=== PATIENT | female | born 1995 | race Caucasian/White ===

== ENCOUNTER 2017-01-23 07:31 | Emergency (ER) | payer BC ==
--- NOTE | 2017-01-23 08:38 | ED ORDER SUMMARY ---
..... Patient: SUZY HUTCHINS OrderSheet [facility] VisitID: [id number] [address] [place] [address] 21y, F Registration Date/Time: 01/23/2017 ORDER SHEET Weight: 62.1 kg (stated) Allergies: No Known Drug Allergy GENERAL ORDERS: MEDICATION ORDERS: Percocet PO 5/325 mg (HIGH ALERT MEDICATION, NOW) (08:35 01/23/2017 [facility]) (Ack 8:39 MWinterer R.N.) (8:46 MWinterer R.N.) Zofran ODT PO 4 mg (NOW) (08:35 01/23/2017 [facility]) (Ack 8:39 MWinterer R.N.) (8:46 MWinterer R.N.) Ceftriaxone IM 1 gm (NOW) (08:35 01/23/2017 [facility]) (Ack 8:39 MWinterer R.N.) (9:38 MWinterer R.N.) Clindamycin PO 300 mg (NOW) (08:35 01/23/2017 [facility]) (Ack 8:39 MWinterer R.N.) (8:47 MWinterer R.N.) IV FLUIDS: ORDER SHEET NOTES: [Electronically signed by Chyna Mcdaniel R.N. (18:51 01/23/2017)] [Electronically signed by Nazario Easley DO (11:38 01/24/2017)] [Electronically locked/signed by Chyna Mcdaniel R.N. (18:51 01/23/2017)]
--- NOTE | 2017-01-23 08:38 | ED NURSING NOTES ---
Clinical Report - Nurses [facility] [address] [place] [address] 01/23/2017 7:36 Patient: SUZY HUTCHINS TRIAGE Acuity: LEVEL 3. Chief Complaint: SORE THROAT. Alert. No acute distress. SEPSIS SCREEN: Sepsis Screen. Negative (no infection suspected/documented). --08:25 Chyna Mcdaniel R.N. 08:20 01/23/17. BP: 111/78. HR: 78. RR: 20. O2 saturation: 99%. Temp: 99.1 F (oral). Pain level now: 03/17. --08:25 Chyna Mcdaniel R.N. Weight: 62.1 kg stated. Height/Length: 65 inches Per Patient. BMI: 22.8. --08:24 Chyna Mcdaniel R.N. Medications Control Pills. --08:22 Chyna Mcdaniel R.N. Amoxicillin-Pot Clavulanate Oral 875 mg. --08:22 Chyna Mcdaniel R.N. Medication/allergy information source: the patient. --08:25 Chyna Mcdaniel R.N. Allergies No Known Drug Allergy. --08:24 Chyna Mcdaniel R.N. History Arrived by private vehicle. Historian: patient. Accompanied by (boyfriend). Primary physician (none). ( Pt reports she was seen at [facility] yesterday and they diagnosed her with a swollen salivary gland. Pt given rx for amoxicillin. Pt reports this am pain is worse.). Reports enlarged lymph nodes. PAST MEDICAL HX: Immunizations: up-to-date. Last normal menstrual period now. SOCIAL HX: Current every day heavy tobacco smoker (cigarette)- less than 1 pack per day. Occasional alcohol use. No drug use. FALL RISK ASSESSMENT: Fall risk assessment completed. No fall risk identified. NUTRITIONAL RISK ASSESSMENT: The nutritional risk assessment revealed no deficiencies. FUNCTIONAL ASSESSMENT: Functional assessment: no impairments noted. LEARNING NEEDS ASSESSMENT: The learning needs assessment revealed no barriers. SKIN INTEGRITY ASSESSMENT: Skin integrity risk assessment completed. No skin integrity risk identified. --08:25 Chyna Mcdaniel R.N. Assessment GENERAL / NEURO / PSYCH: Alert. Oriented X 4. Appears in no acute distress. [place] Coma Scale: 15- eyes open spontaneously (4); best verbal response- oriented x 4 (5); best motor response- obeys commands (6). Patient appears calm and cooperative. RESPIRATORY: Respirations not labored. CVS: Capillary refill less than 2 seconds. GI / : Abdomen soft and nontender. SKIN: Mucous membranes are pink. Skin is warm and dry. --08:25 Chyna Mcdaniel R.N. Interventions ID band on patient. To treatment room. --08:25 Chyna Mcdaniel R.N. PHYSICAL ASSESSMENT Ambulatory to room. GENERAL / NEURO / PSYCH: Alert. Oriented X 4. Appears in no acute distress. HEENT: Voice within normal limits. Mucous membranes are pink. RESPIRATORY: Respirations not labored. CVS: Capillary refill less than 2 seconds. SKIN: Skin is warm. Normal skin turgor. --08:26 Chyna Mcdaniel R.N. NURSING PROGRESS NOTES 08:26 01/23/17. Patient gowned. Two patient identifiers checked. Checked patient name and birthdate. Call light placed in reach. Bed placed in lowest position. Brakes of bed on. Patient ready for evaluation- chart flagged and ED physician notified. --08:26 Chyna Mcdaniel R.N. 08:46 01/23/2017 Percocet (Oxycodone-Acetaminophen) PO 5/325 mg Tablets 1 tab given. Allergies verified, confirmed 5 rights and sedative warning given to the patient. --08:46 Chyna Mcdaniel R.N. 08:46 01/23/2017 Zofran ODT (Ondansetron) PO 4 mg given. Allergies verified and confirmed 5 rights. --08:46 Chyna Mcdaniel R.N. 08:47 01/23/2017 Clindamycin PO 300 mg given. Allergies verified and confirmed 5 rights. --08:47 Chyna Mcdaniel R.N. 09:35 01/23/17. BP: 117/64. HR: 89. RR: 16. O2 saturation: 98% on room air. Pain level now: 2/10. --09:36 Chyna Mcdaniel R.N. 09:38 01/23/2017 Ceftriaxone IM 1 gm given. Given in the right gluteus alexus. Allergies verified and confirmed 5 rights. --09:38 Chyna Mcdaniel R.N. DISPOSITION / DISCHARGE Departure time: 10:00 Jan 23 2017. Condition at departure: improved and stable. No learning barriers present. Reviewed medication(s) side effects, precautions and dosing information. Prescription(s) given to the patient. Patient verbalized understanding. Written instructions provided in Malay. The patient was discharged by the physician. She was discharged home and accompanied by underwear welter. She left the Emergency Department ambulatory and via private vehicle. Flour Broker driving. --18:50 Chyna Mcdaniel R.N. 18:49 01/23/17. BP: 108/59. HR: 68. RR: 18. O2 saturation: 98% on room air. Temp: 98.9 F (oral). Pain level now: 09/17. --18:50 Chyna Mcdaniel R.N. Locked/Released at 01/23/2017 18:51 by Chyna Mcdaniel R.N.
--- NOTE | 2017-01-23 08:38 | ED ORDER SUMMARY ---
..... Patient: SUZY HUTCHINS OrderSheet [facility] VisitID: [id number] [address] [place] [address] 21y, F Registration Date/Time: 01/23/2017 ORDER SHEET Weight: 62.1 kg (stated) Allergies: No Known Drug Allergy GENERAL ORDERS: MEDICATION ORDERS: Percocet PO 5/325 mg (HIGH ALERT MEDICATION, NOW) (08:35 01/23/2017 [facility]) (Ack 8:39 MWinterer R.N.) (8:46 MWinterer R.N.) Zofran ODT PO 4 mg (NOW) (08:35 01/23/2017 [facility]) (Ack 8:39 MWinterer R.N.) (8:46 MWinterer R.N.) Ceftriaxone IM 1 gm (NOW) (08:35 01/23/2017 [facility]) (Ack 8:39 MWinterer R.N.) (9:38 MWinterer R.N.) Clindamycin PO 300 mg (NOW) (08:35 01/23/2017 [facility]) (Ack 8:39 MWinterer R.N.) (8:47 MWinterer R.N.) IV FLUIDS: ORDER SHEET NOTES: [Electronically signed by Chyna Mcdaniel R.N. (18:51 01/23/2017)] [Electronically signed by Nazario Easley DO (11:38 01/24/2017)] [Electronically locked/signed by Chyna Mcdaniel R.N. (18:51 01/23/2017)]
--- NOTE | 2017-01-23 08:38 | ED CLINICAL REPORT ---
Clinical Report - Physicians/Mid Levels [facility] [address] [place] [address] 01/23/2017 7:36 Patient: SUZY HUTCHINS Time Seen: 08:27. Arrived- By private vehicle. Historian- patient. HISTORY OF PRESENT ILLNESS Chief Complaint: SWELLING OF JAW / FACE. This started about 2 days ago and is still present. It was gradual in onset and has been waxing/waning. Pain described as moderate. No sore throat. She has had moderate swelling of the left face. (Pt reports she was seen at [facility] yesterday and they diagnosed her with a swollen salivary gland. Pt given rx for amoxicillin. Pt reports this am pain is worse.). Reports enlarged lymph nodes.). Similar symptoms previously: Recent medical care: The patient was seen recently at another facility in a clinic. REVIEW OF SYSTEMS Last normal menstrual period now. No fever, difficulty breathing, nausea, difficulty with urination or headache. No skin rash or vomiting. Denies current . PAST HISTORY See nurses notes. SOCIAL HISTORY Smoker- current status unknown. Occasional alcohol use. No drug use. ADDITIONAL NOTES The nursing notes have been reviewed. PHYSICAL EXAM Vital Signs: 01/23/2017 08:20 BP: 111/78. HR: 78. RR: 20. O2 saturation: 99%. Temp: 99.1 F. Pain level now: 8/10. Appearance: Alert. Patient in mild distress. Head: No facial erythema. Left cheek: moderate tenderness and swelling (over the left parotid gland). No erythema. ENT: Ears normal. Nose normal. Pharynx normal. Lips normal. Gums normal. No trismus present. Uvula midline. Neck: Normal inspection. Trachea midline. Neck supple. CVS: Normal heart rate and rhythm. Heart sounds normal. Pulses normal. Respiratory: No respiratory distress. Breath sounds normal. Abdomen: Soft and nontender. No organomegaly. Skin: Normal skin color. No rash. Normal skin turgor. Extremities: Extremities exhibit normal ROM. Extremities nontender. Neuro: Oriented X 3. No motor deficit. LABS, X-RAYS, AND EKG Pulse Oximetry: 01/23/2017 08:20 O2 saturation: 99%. (FIO2 - room air). Interpretation: normal. PROGRESS AND PROCEDURES Course of Care: Percocet 5 mg PO given. Zofran 4 mg ODT PO given. Ceftriaxone 1gm IM given. Clindamycin 300 mg PO given. No systemic symptoms. May be mumps - lab confirmation pending. Patient/family counseled. Disposition: Discharged. Condition: stable and improved. CLINICAL IMPRESSION Acute sialoadenitis Consider Mumps - lab report pending. INSTRUCTIONS Do not work for three days. Rest. Drink plenty of fluids. Do not smoke. Seek medical help to quit smoking. (You may try sucking on lemon drops). Warnings: Further evaluation is necessary. It is very important to follow up with a physician. CONTROLLED SUBSTANCE WARNINGS. GENERAL WARNINGS: Return or contact your physician immediately if your condition worsens or changes unexpectedly, if not improving as expected, or if other problems arise. Your Current Medications: STOP TAKING THE FOLLOWING MEDICATIONS: Amoxicillin-Pot Clavulanate Oral : 875 mg. CONTINUE TAKING THE FOLLOWING MEDICATIONS: Control Pills*. Prescription Medications: Hydrocodone/APAP 5mg/325mg: take 1 to 2 orally every 6 hours as needed for pain. Dispense fifteen (15). No refills. Clindamycin 300 mg: take 1 capsule orally every 6 hours for 7 days. No refills. OTC Medications: Acetaminophen (available over the counter): take according to label instructions. Motrin (available over the counter): take according to label instructions. Follow-up: Follow up with your doctor in two days. Follow-up with: Jae Tejeda MD, ENT, , [facility], [address] [place] [address], [phone] Follow up in about two days if not better. (Electronically signed by Nazario Easley DO 01/24/2017 11:38)
--- NOTE | 2017-01-23 08:38 | ED NURSING NOTES ---
Clinical Report - Nurses [facility] [address] [place] [address] 01/23/2017 7:36 Patient: SUZY HUTCHINS TRIAGE Acuity: LEVEL 3. Chief Complaint: SORE THROAT. Alert. No acute distress. SEPSIS SCREEN: Sepsis Screen. Negative (no infection suspected/documented). --08:25 Chyna Mcdaniel R.N. 08:20 01/23/17. BP: 111/78. HR: 78. RR: 20. O2 saturation: 99%. Temp: 99.1 F (oral). Pain level now: 03/17. --08:25 Chyna Mcdaniel R.N. Weight: 62.1 kg stated. Height/Length: 65 inches Per Patient. BMI: 22.8. --08:24 Chyna Mcdaniel R.N. Medications Control Pills. --08:22 Chyna Mcdaniel R.N. Amoxicillin-Pot Clavulanate Oral 875 mg. --08:22 Chyna Mcdaniel R.N. Medication/allergy information source: the patient. --08:25 Chyna Mcdaniel R.N. Allergies No Known Drug Allergy. --08:24 Chyna Mcdaniel R.N. History Arrived by private vehicle. Historian: patient. Accompanied by (boyfriend). Primary physician (none). ( Pt reports she was seen at [facility] yesterday and they diagnosed her with a swollen salivary gland. Pt given rx for amoxicillin. Pt reports this am pain is worse.). Reports enlarged lymph nodes. PAST MEDICAL HX: Immunizations: up-to-date. Last normal menstrual period now. SOCIAL HX: Current every day heavy tobacco smoker (cigarette)- less than 1 pack per day. Occasional alcohol use. No drug use. FALL RISK ASSESSMENT: Fall risk assessment completed. No fall risk identified. NUTRITIONAL RISK ASSESSMENT: The nutritional risk assessment revealed no deficiencies. FUNCTIONAL ASSESSMENT: Functional assessment: no impairments noted. LEARNING NEEDS ASSESSMENT: The learning needs assessment revealed no barriers. SKIN INTEGRITY ASSESSMENT: Skin integrity risk assessment completed. No skin integrity risk identified. --08:25 Chyna Mcdaniel R.N. Assessment GENERAL / NEURO / PSYCH: Alert. Oriented X 4. Appears in no acute distress. [place] Coma Scale: 15- eyes open spontaneously (4); best verbal response- oriented x 4 (5); best motor response- obeys commands (6). Patient appears calm and cooperative. RESPIRATORY: Respirations not labored. CVS: Capillary refill less than 2 seconds. GI / : Abdomen soft and nontender. SKIN: Mucous membranes are pink. Skin is warm and dry. --08:25 Chyna Mcdaniel R.N. Interventions ID band on patient. To treatment room. --08:25 Chyna Mcdaniel R.N. PHYSICAL ASSESSMENT Ambulatory to room. GENERAL / NEURO / PSYCH: Alert. Oriented X 4. Appears in no acute distress. HEENT: Voice within normal limits. Mucous membranes are pink. RESPIRATORY: Respirations not labored. CVS: Capillary refill less than 2 seconds. SKIN: Skin is warm. Normal skin turgor. --08:26 Chyna Mcdaniel R.N. NURSING PROGRESS NOTES 08:26 01/23/17. Patient gowned. Two patient identifiers checked. Checked patient name and birthdate. Call light placed in reach. Bed placed in lowest position. Brakes of bed on. Patient ready for evaluation- chart flagged and ED physician notified. --08:26 Chyna Mcdaniel R.N. 08:46 01/23/2017 Percocet (Oxycodone-Acetaminophen) PO 5/325 mg Tablets 1 tab given. Allergies verified, confirmed 5 rights and sedative warning given to the patient. --08:46 Chyna Mcdaniel R.N. 08:46 01/23/2017 Zofran ODT (Ondansetron) PO 4 mg given. Allergies verified and confirmed 5 rights. --08:46 Chyna Mcdaniel R.N. 08:47 01/23/2017 Clindamycin PO 300 mg given. Allergies verified and confirmed 5 rights. --08:47 Chyna Mcdaniel R.N. 09:35 01/23/17. BP: 117/64. HR: 89. RR: 16. O2 saturation: 98% on room air. Pain level now: 2/10. --09:36 Chyna Mcdaniel R.N. 09:38 01/23/2017 Ceftriaxone IM 1 gm given. Given in the right gluteus alexus. Allergies verified and confirmed 5 rights. --09:38 Chyna Mcdaniel R.N. DISPOSITION / DISCHARGE Departure time: 10:00 Jan 23 2017. Condition at departure: improved and stable. No learning barriers present. Reviewed medication(s) side effects, precautions and dosing information. Prescription(s) given to the patient. Patient verbalized understanding. Written instructions provided in [place]. The patient was discharged by the physician. She was discharged home and accompanied by energy conservation technician. She left the Emergency Department ambulatory and via private vehicle. Shot Coat Tender driving. --18:50 Chyna Mcdaniel R.N. 18:49 01/23/17. BP: 108/59. HR: 68. RR: 18. O2 saturation: 98% on room air. Temp: 98.9 F (oral). Pain level now: 09/17. --18:50 Chyna Mcdaniel R.N. Locked/Released at 01/23/2017 18:51 by Chyna Mcdaniel R.N.
--- NOTE | 2017-01-23 08:38 | ED CLINICAL REPORT ---
Clinical Report - Physicians/Mid Levels [facility] [address] [place] [address] 01/23/2017 7:36 Patient: SUZY HUTCHINS Time Seen: 08:27. Arrived- By private vehicle. Historian- patient. HISTORY OF PRESENT ILLNESS Chief Complaint: SWELLING OF JAW / FACE. This started about 2 days ago and is still present. It was gradual in onset and has been waxing/waning. Pain described as moderate. No sore throat. She has had moderate swelling of the left face. (Pt reports she was seen at [facility] yesterday and they diagnosed her with a swollen salivary gland. Pt given rx for amoxicillin. Pt reports this am pain is worse.). Reports enlarged lymph nodes.). Similar symptoms previously: Recent medical care: The patient was seen recently at another facility in a clinic. REVIEW OF SYSTEMS Last normal menstrual period now. No fever, difficulty breathing, nausea, difficulty with urination or headache. No skin rash or vomiting. Denies current . PAST HISTORY See nurses notes. SOCIAL HISTORY Smoker- current status unknown. Occasional alcohol use. No drug use. ADDITIONAL NOTES The nursing notes have been reviewed. PHYSICAL EXAM Vital Signs: 01/23/2017 08:20 BP: 111/78. HR: 78. RR: 20. O2 saturation: 99%. Temp: 99.1 F. Pain level now: 8/10. Appearance: Alert. Patient in mild distress. Head: No facial erythema. Left cheek: moderate tenderness and swelling (over the left parotid gland). No erythema. ENT: Ears normal. Nose normal. Pharynx normal. Lips normal. Gums normal. No trismus present. Uvula midline. Neck: Normal inspection. Trachea midline. Neck supple. CVS: Normal heart rate and rhythm. Heart sounds normal. Pulses normal. Respiratory: No respiratory distress. Breath sounds normal. Abdomen: Soft and nontender. No organomegaly. Skin: Normal skin color. No rash. Normal skin turgor. Extremities: Extremities exhibit normal ROM. Extremities nontender. Neuro: Oriented X 3. No motor deficit. LABS, X-RAYS, AND EKG Pulse Oximetry: 01/23/2017 08:20 O2 saturation: 99%. (FIO2 - room air). Interpretation: normal. PROGRESS AND PROCEDURES Course of Care: Percocet 5 mg PO given. Zofran 4 mg ODT PO given. Ceftriaxone 1gm IM given. Clindamycin 300 mg PO given. No systemic symptoms. May be mumps - lab confirmation pending. Patient/family counseled. Disposition: Discharged. Condition: stable and improved. CLINICAL IMPRESSION Acute sialoadenitis Consider Mumps - lab report pending. INSTRUCTIONS Do not work for three days. Rest. Drink plenty of fluids. Do not smoke. Seek medical help to quit smoking. (You may try sucking on lemon drops). Warnings: Further evaluation is necessary. It is very important to follow up with a physician. CONTROLLED SUBSTANCE WARNINGS. GENERAL WARNINGS: Return or contact your physician immediately if your condition worsens or changes unexpectedly, if not improving as expected, or if other problems arise. Your Current Medications: STOP TAKING THE FOLLOWING MEDICATIONS: Amoxicillin-Pot Clavulanate Oral : 875 mg. CONTINUE TAKING THE FOLLOWING MEDICATIONS: Control Pills*. Prescription Medications: Hydrocodone/APAP 5mg/325mg: take 1 to 2 orally every 6 hours as needed for pain. Dispense fifteen (15). No refills. Clindamycin 300 mg: take 1 capsule orally every 6 hours for 7 days. No refills. OTC Medications: Acetaminophen (available over the counter): take according to label instructions. Motrin (available over the counter): take according to label instructions. Follow-up: Follow up with your doctor in two days. Follow-up with: Jae Tejeda MD, ENT, , [facility], [address] [place] [address], [phone] Follow up in about two days if not better. (Electronically signed by Nazario Easley DO 01/24/2017 11:38)
--- NOTE | 2017-01-24 11:39 | ED MAR SUMMARY ---
..... Medication Administration Record [facility] [address] [place] [address] Patient: SUZY HUTCHINS Visit ID: [id number] 21y, F Weight: 62.1 kg Height/Length: 65 in BMI: 22.8 ALLERGIES: No Known Drug Allergy Given 08:46 01/23/2017 Chyna Mcdaniel R.N. Medication Administered: PERCOCET [PO] (OXYCODONE-ACETAMINOPHEN), Dose: 1 tab 5/325 mg Tablets PO. Medication Ordered: Percocet PO 5/325 mg (HIGH ALERT MEDICATION, NOW). Given 08:46 01/23/2017 Chyna Mcdaniel R.N. Medication Administered: ZOFRAN ODT [PO] (ONDANSETRON), Dose: 4 mg PO. Medication Ordered: Zofran ODT PO 4 mg (NOW). Given 08:47 01/23/2017 Chyna Mcdaniel R.N. Medication Administered: CLINDAMYCIN [PO], Dose: 300 mg PO. Medication Ordered: Clindamycin PO 300 mg (NOW). Given 09:38 01/23/2017 Chyna Mcdaniel R.N. Medication Administered: CEFTRIAXONE [IM], Dose: 1 gm IM. Medication Ordered: Ceftriaxone IM 1 gm (NOW).
--- NOTE | 2017-01-24 11:39 | ED MAR SUMMARY ---
..... Medication Administration Record [facility] [address] [place] [address] Patient: SUZY HUTCHINS Visit ID: [id number] 21y, F Weight: 62.1 kg Height/Length: 65 in BMI: 22.8 ALLERGIES: No Known Drug Allergy Given 08:46 01/23/2017 Chyna Mcdaniel R.N. Medication Administered: PERCOCET [PO] (OXYCODONE-ACETAMINOPHEN), Dose: 1 tab 5/325 mg Tablets PO. Medication Ordered: Percocet PO 5/325 mg (HIGH ALERT MEDICATION, NOW). Given 08:46 01/23/2017 Chyna Mcdaniel R.N. Medication Administered: ZOFRAN ODT [PO] (ONDANSETRON), Dose: 4 mg PO. Medication Ordered: Zofran ODT PO 4 mg (NOW). Given 08:47 01/23/2017 Chyna Mcdaniel R.N. Medication Administered: CLINDAMYCIN [PO], Dose: 300 mg PO. Medication Ordered: Clindamycin PO 300 mg (NOW). Given 09:38 01/23/2017 Chyna Mcdaniel R.N. Medication Administered: CEFTRIAXONE [IM], Dose: 1 gm IM. Medication Ordered: Ceftriaxone IM 1 gm (NOW).
--- NOTE | 2017-01-24 11:39 | ED DISCHARGE INSTRUCTIONS ---
Patient: SUZY HUTCHINS General Instructions [facility] VisitID: [id number] [address] [place] [address] 21y, F Registration Date/Time: 01/23/2017 Acute sialoadenitis Consider Mumps - lab report pending. INSTRUCTIONS Do not work for three days. Rest. Drink plenty of fluids. Do not smoke. Seek medical help to quit smoking. (You may try sucking on lemon drops). Warnings: Further evaluation is necessary. It is very important to follow up with a physician. CONTROLLED SUBSTANCE WARNINGS. GENERAL WARNINGS: Return or contact your physician immediately if your condition worsens or changes unexpectedly, if not improving as expected, or if other problems arise. Your Current Medications: STOP TAKING THE FOLLOWING MEDICATIONS: Amoxicillin-Pot Clavulanate Oral : 875 mg. CONTINUE TAKING THE FOLLOWING MEDICATIONS: Control Pills*. Prescription Medications: Hydrocodone/APAP 5mg/325mg: take 1 to 2 orally every 6 hours as needed for pain. Dispense fifteen (15). No refills. Clindamycin 300 mg: take 1 capsule orally every 6 hours for 7 days. No refills. OTC Medications: Acetaminophen (available over the counter): take according to label instructions. Motrin (available over the counter): take according to label instructions. Follow-up: Follow up with your doctor in two days. Follow-up with: Jae Tejeda MD, ENT, , [facility], [address] [place] [address], [place], [id number] Follow up in about two days if not better. ADDITIONAL INFORMATION Salivary Gland Infection Salivary glands make saliva in response to food in your mouth. Saliva is mostly water, but also has minerals and proteins that help break down food and keep the mouth and teeth healthy. There are three pairs of salivary glands: Parotid glands (in front of the ear) Submandibular glands (below the jaw) Sublingual glands (below the tongue) Each gland has a duct (channel) that allows saliva to flow from the gland into the mouth. The salivary gland can become infected as a result of the salivary duct being blocked. This blockage may be due to a stone, narrowing of the duct, or poor salivary flow due to dehydration. Chronic illness or certain medications can also increase the risk of infection. A blocked salivary gland is at risk of infection. This causes severe pain in the gland with redness in the skin over the gland. The gland is tender to the touch and there may be fever. Symptoms are worse during eating since food stimulates the flow of saliva. Even the smell or thought of food can cause symptoms to appear. Diagnosis of a salivary gland blockage with infection requires an X-ray, CT-scan, ultrasound or injection of dye into the salivary duct. If a stone is discovered, it may be removed by massage of the duct, or a procedure to remove the stone manually. Antibiotics are used to treat the infection. Sometimes it is necessary to drain the infection with a small surgical procedure. Home Care: Drink 6-8 glasses of fluid per day (water, juices, tea, soup, etc.) to keep well-hydrated. If you smoke, quit smoking. Maintain good dental hygiene: [place] your teeth, floss, and use mouthwash. If it is determined that no stone is present, but you have gland swelling during meals, there may be sludge blocking the duct, or the duct may be narrowed. Gently massaging the gland and sucking on lemon drops after a meal may help reduce the symptoms. Take antibiotics as directed until you have finished them all, even if you are feeling better after only a few days. Follow Up with your doctor or as advised by our staff. Get Prompt Medical Attention if any of the following occur: Increasing pain or swelling in the gland Fever over 100.5F (38.0C) that persists after two days of antibiotics Increasing redness over the gland How To Quit Smoking Smoking is one of the hardest habits to break. About half of all those who have ever smoked have been able to quit, and most of those (about 70%) who still smoke want to quit. Here are some of the best ways to stop smoking. Keep Trying: It takes most smokers about 8 tries before they are finally able to fully quit. So, the more often you try and fail, the better your chance of quitting the next time! So, don't give up! Go Cold Bruni: Most ex-smokers quit cold turkey. Trying to cut back gradually doesn't seem to work as well, perhaps because it continues the smoking habit. Also, it is possible to fool yourself by inhaling more while smoking fewer cigarettes. This results in the same amount of nicotine in your body! Get Support: Support programs can make an important difference, especially for the heavy smoker. These groups offer lectures, methods to change your behavior and peer support. Call the free national Quitline for more information. 894-SNMS-DOK (502-843-9319). Low-cost or free programs are offered by many hospitals, local chapters of the [place] [employer] (943-261-8534) and the [place] [employer] (412-435-7253). Support at home is important too. Non-smokers can help by offering praise and encouragement. If the smoker fails to quit, encourage them to try again! Ahst-Ocx-Hjnruff Medicines: For those who can't quit on their own, Nicotine Replacement Therapy (NRT) may make quitting much easier. Certain aids such as the nicotine patch, gum and lozenge are available without a prescription. However, it is best to use these under the guidance of your doctor. The skin patch provides a steady supply of nicotine to the body. Nicotine gum and lozenge gives temporary bursts of low levels of nicotine. Both methods take the edge off the craving for cigarettes. WARNING: If you feel symptoms of nicotine overdose, such as nausea, vomiting, dizziness, weakness, or fast heartbeat, stop using these and see your doctor. Prescription Medicines: After evaluating your smoking patterns and prior attempts at quitting, your doctor may offer a prescription medicine such as bupropion (Zyban, Wellbutrin), varenicline (Chantix, Champix), a niocotine inhaler or nasal spray. Each has its unique advantage and side effects which your doctor can review with you. Health Benefits Of Quitting: The benefits of quitting start right away and keep improving the longer you go without smokin minutes: blood pressure and pulse return to normal 8 hours: oxygen levels return to normal 2 days: ability to smell and taste begins to improve as damaged nerves start to regrow 2-3 weeks: circulation and lung function improves 1-9 months: decreased cough, congestion and shortness of breath; less tired 1 year: risk of heart attack decreases by half 5 years: risk of lung cancer decreases by half; risk of stroke becomes the same as a non-smoker For information about how to quit smoking, visit the following links: National Cancer [place] , Clearing the Air, Quit Smoking Today - an online booklet. http://www.smokefree.gov/pubs/clearing_the_air.pdf Smokefree.gov http://smokefree.gov/ QuitNet http://www.quitnet.com/ Hydrocodone Bitartrate, Acetaminophen Oral tablet What is this medicine? ACETAMINOPHEN; HYDROCODONE (a set a DELMAR jeremiah fen; horace droe KOE done) is a pain reliever. It is used to treat mild to moderate pain. How should I use this medicine? Take this medicine by mouth. Swallow it with a full glass of water. Follow the directions on the prescription label. If the medicine upsets your stomach, take the medicine with food or milk. Do not take more than you are told to take. Talk to your harness mender regarding the use of this medicine in children. This medicine is not approved for use in children. What side effects may I notice from receiving this medicine? Side effects that you should report to your doctor or health career portals teacher as soon as possible: allergic reactions like skin rash, itching or hives, swelling of the face, lips, or tongue breathing problems confusion feeling faint or lightheaded, falls stomach pain yellowing of the eyes or skin Side effects that usually do not require medical attention (report to your doctor or health career portals teacher if they continue or are bothersome): nausea, vomiting stomach upset What may interact with this medicine? alcohol antihistamines isoniazid medicines for depression, anxiety, or psychotic disturbances medicines for sleep muscle relaxants naltrexone narcotic medicines (opiates) for pain phenobarbital ritonavir tramadol What if I miss a dose? If you miss a dose, take it as soon as you can. If it is almost time for your next dose, take only that dose. Do not take double or extra doses. Where should I keep my medicine? Keep out of the reach of children. This medicine can be abused. Keep your medicine in a safe place to protect it from theft. Do not share this medicine with anyone. Selling or giving away this medicine is dangerous and against the law. Store at room temperature between 15 and 30 degrees C (59 and 86 degrees F). Protect from light. Keep container tightly closed. Throw away any unused medicine after the expiration date. Discard unused medicine and used packaging carefully. Pets and children can be harmed if they find used or lost packages. What should I tell my health care provider before I take this medicine? They need to know if you have any of these conditions: brain tumor Crohn's disease, inflammatory bowel disease, or ulcerative colitis drink more than 3 alcohol-containing drinks per day drug abuse or addiction head injury heart or circulation problems kidney disease or problems going to the bathroom liver disease lung disease, asthma, or breathing problems an unusual or allergic reaction to acetaminophen, hydrocodone, other opioid analgesics, other medicines, foods, dyes, or preservatives or trying to get breast-feeding What should I watch for while using this medicine? Tell your doctor or health career portals teacher if your pain does not go away, if it gets worse, or if you have new or a different type of pain. You may develop tolerance to the medicine. Tolerance means that you will need a higher dose of the medicine for pain relief. Tolerance is normal and is expected if you take the medicine for a long time. Do not suddenly stop taking your medicine because you may develop a severe reaction. Your body becomes used to the medicine. This does NOT mean you are addicted. Addiction is a behavior related to getting and using a drug for a non-medical reason. If you have pain, you have a medical reason to take pain medicine. Your doctor will tell you how much medicine to take. If your doctor wants you to stop the medicine, the dose will be slowly lowered over time to avoid any side effects. You may get drowsy or dizzy when you first start taking the medicine or change doses. Do not drive, use machinery, or do anything that may be dangerous until you know how the medicine affects you. Stand or sit up slowly. There are different types of narcotic medicines (opiates) for pain. If you take more than one type at the same time, you may have more side effects. Give your health care provider a list of all medicines you use. Your doctor will tell you how much medicine to take. Do not take more medicine than directed. Call emergency for help if you have problems breathing. The medicine will cause constipation. Try to have a bowel movement at least every 2 to 3 days. If you do not have a bowel movement for 3 days, call your doctor or health career portals teacher. Too much acetaminophen can be very dangerous. Do not take Tylenol (acetaminophen) or medicines that contain acetaminophen with this medicine. Many non-prescription medicines contain acetaminophen. Always read the labels carefully. Clindamycin Hydrochloride Oral capsule What is this medicine? CLINDAMYCIN (CHUCK Lopez) is a lincosamide antibiotic. It is used to treat certain kinds of bacterial infections. It will not work for colds, flu, or other viral infections. How should I use this medicine? Take this medicine by mouth with a full glass of water. Follow the directions on the prescription label. You can take this medicine with food or on an empty stomach. If the medicine upsets your stomach, take it with food. Take your medicine at regular intervals. Do not take your medicine more often than directed. Take all of your medicine as directed even if you think your are better. Do not skip doses or stop your medicine early. Talk to your harness mender regarding the use of this medicine in children. Special care may be needed. What side effects may I notice from receiving this medicine? Side effects that you should report to your doctor or health career portals teacher as soon as possible: allergic reactions like skin rash, itching or hives, swelling of the face, lips, or tongue dark urine pain on swallowing redness, blistering, peeling or loosening of the skin, including inside the mouth unusual bleeding or bruising unusually weak or tired yellowing of eyes or skin Side effects that usually do not require medical attention (report to your doctor or health career portals teacher if they continue or are bothersome): diarrhea itching in the rectal or genital area joint pain nausea, vomiting stomach pain What may interact with this medicine? chloramphenicol erythromycin kaolin products What if I miss a dose? If you miss a dose, take it as soon as you can. If it is almost time for your next dose, take only that dose. Do not take double or extra doses. Where should I keep my medicine? Keep out of the reach of children. Store at room temperature between 20 and 25 degrees C (68 and 77 degrees F). Throw away any unused medicine after the expiration date. What should I tell my health care provider before I take this medicine? They need to know if you have any of these conditions: kidney disease liver disease stomach problems like colitis an unusual or allergic reaction to clindamycin, lincomycin, or other medicines, foods, dyes like tartrazine or preservatives or trying to get breast-feeding What should I watch for while using this medicine? Tell your doctor or healthcare professional if your symptoms do not start to get better or if they get worse. Do not treat diarrhea with over the counter products. Contact your doctor if you have diarrhea that lasts more than 2 days or if it is severe and watery. Acetaminophen Oral tablet What is this medicine? ACETAMINOPHEN (a set a DELMAR jeremiah fen) is a pain reliever. It is used to treat mild pain and fever. How should I use this medicine? Take this medicine by mouth with a glass of water. Follow the directions on the package or prescription label. Take your medicine at regular intervals. Do not take your medicine more often than directed. Talk to your harness mender regarding the use of this medicine in children. While this drug may be prescribed for children as young as 6 years of age for selected conditions, precautions do apply. What side effects may I notice from receiving this medicine? Side effects that you should report to your doctor or health career portals teacher as soon as possible: allergic reactions like skin rash, itching or hives, swelling of the face, lips, or tongue breathing problems fever or sore throat redness, blistering, peeling or loosening of the skin, including inside the mouth trouble passing urine or change in the amount of urine unusual bleeding or bruising unusually weak or tired yellowing of the eyes or skin Side effects that usually do not require medical attention (report to your doctor or health career portals teacher if they continue or are bothersome): headache nausea, stomach upset What may interact with this medicine? alcohol imatinib isoniazid other medicines with acetaminophen What if I miss a dose? If you miss a dose, take it as soon as you can. If it is almost time for your next dose, take only that dose. Do not take double or extra doses. Where should I keep my medicine? Keep out of reach of children. Store at room temperature between 20 and 25 degrees C (68 and 77 degrees F). Protect from moisture and heat. Throw away any unused medicine after the expiration date. What should I tell my health care provider before I take this medicine? They need to know if you have any of these conditions: if you frequently drink alcohol containing drinks liver disease an unusual or allergic reaction to acetaminophen, other medicines, foods, dyes or preservatives or trying to get breast-feeding What should I watch for while using this medicine? Tell your doctor or health career portals teacher if the pain lasts more than 10 days (5 days for children), if it gets worse, or if there is a new or different kind of pain. Also, check with your doctor if a fever lasts for more than 3 days. Do not take other medicines that contain acetaminophen with this medicine. Always read labels carefully. If you have questions, ask your doctor or pharmacist. If you take too much acetaminophen get medical help right away. Too much acetaminophen can be very dangerous and cause liver damage. Even if you do not have symptoms, it is important to get help right away. Ibuprofen Oral tablet What is this medicine? IBUPROFEN (eye BYOO proe fen) is a non-steroidal anti-inflammatory drug (NSAID). It is used for dental pain, fever, headaches or migraines, osteoarthritis, rheumatoid arthritis, or painful monthly periods. It can also relieve minor aches and pains caused by a cold, flu, or sore throat. How should I use this medicine? Take this medicine by mouth with a glass of water. Follow the directions on the prescription label. Take this medicine with food if your stomach gets upset. Try to not lie down for at least 10 minutes after you take the medicine. Take your medicine at regular intervals. Do not take your medicine more often than directed. A special MedGuide will be given to you by the pharmacist with each prescription and refill. Be sure to read this information carefully each time. Talk to your harness mender regarding the use of this medicine in children. Special care may be needed. What side effects may I notice from receiving this medicine? Side effects that you should report to your doctor or health career portals teacher as soon as possible: allergic reactions like skin rash, itching or hives, swelling of the face, lips, or tongue black or bloody stools, blood in the urine or in vomit breathing problems changes in vision chest pain general ill feeling or flu-like symptoms nausea or vomiting redness, blistering, peeling or loosening of the skin, including inside the mouth slurred speech or weakness on one side of the body stomach pain unexplained weight gain or swelling unusually weak or tired yellowing of eyes or skin Side effects that usually do not require medical attention (report to your doctor or health career portals teacher if they continue or are bothersome): constipation or diarrhea dizziness gas or heartburn stomach upset What may interact with this medicine? Do not take this medicine with any of the following medications: cidofovir ketorolac methotrexate pemetrexed This medicine may also interact with the following medications: alcohol aspirin diuretics lithium other drugs for inflammation like prednisone warfarin What if I miss a dose? If you miss a dose, take it as soon as you can. If it is almost time for your next dose, take only that dose. Do not take double or extra doses. Where should I keep my medicine? Keep out of the reach of children. Store at room temperature between 15 and 30 degrees C (59 and 86 degrees F). Keep container tightly closed. Throw away any unused medicine after the expiration date. What should I tell my health care provider before I take this medicine? They need to know if you have any of these conditions: asthma cigarette smoker drink more than 3 alcohol containing drinks a day heart disease or circulation problems such as heart failure or leg edema (fluid retention) high blood pressure kidney disease liver disease stomach bleeding or ulcers an unusual or allergic reaction to ibuprofen, aspirin, other NSAIDS, other medicines, foods, dyes, or preservatives or trying to get breast-feeding What should I watch for while using this medicine? Tell your doctor or healthcare professional if your symptoms do not start to get better or if they get worse. This medicine does not prevent heart attack or stroke. In fact, this medicine may increase the chance of a heart attack or stroke. The chance may increase with longer use of this medicine and in people who have heart disease. If you take aspirin to prevent heart attack or stroke, talk with your doctor or health career portals teacher. Do not take other medicines that contain aspirin, ibuprofen, or naproxen with this medicine. Side effects such as stomach upset, nausea, or ulcers may be more likely to occur. Many medicines available without a prescription should not be taken with this medicine. This medicine can cause ulcers and bleeding in the stomach and intestines at any time during treatment. Ulcers and bleeding can happen without warning symptoms and can cause . To reduce your risk, do not smoke cigarettes or drink alcohol while you are taking this medicine. You may get drowsy or dizzy. Do not drive, use machinery, or do anything that needs mental alertness until you know how this medicine affects you. Do not stand or sit up quickly, especially if you are an older patient. This reduces the risk of dizzy or fainting spells. This medicine can cause you to bleed more easily. Try to avoid damage to your teeth and gums when you brush or floss your teeth. You have been given the following additional information: Salivary Gland Infection Smoking Cessation Hydrocodone Bitartrate, Acetaminophen Oral tablet Clindamycin Hydrochloride Oral capsule Acetaminophen Oral tablet Ibuprofen Oral tablet Do not work for three days. Rest. (Electronically signed by Nazario Easley DO 01/24/2017 11:38)
--- NOTE | 2017-01-24 11:39 | ED MED RECONCILIATION SUMMARY ---
Patient: SUZY HUTCHINS Medication Reconciliation Report [facility] VisitID: [id number] [address] [place] [address] 21y, F Registration Date/Time: 01/23/2017 Weight: 62.1 kg Height/Length: 65 in. BMI: 22.8 ALLERGIES: No Known Drug Allergy The patient's Home Medications are listed below: STOP TAKING THE FOLLOWING MEDICATIONS: Amoxicillin-Pot Clavulanate Oral 875 mg CONTINUE TAKING THE FOLLOWING MEDICATIONS: Control Pills The source(s) of the original Home Medication information: patient The following Medications were given to the patient in the Emergency Department: Percocet [PO] PO 1 tab, administered: 01/23/2017 8:46:00 AM Zofran ODT [PO] PO 4 mg, administered: 01/23/2017 8:46:00 AM Clindamycin [PO] PO 300 mg, administered: 01/23/2017 8:47:00 AM Ceftriaxone [IM] IM 1 gm, administered: 01/23/2017 9:38:00 AM The following Medications were prescribed to the patient: Acetaminophen (available over the counter): take according to label instructions. -- Nazario Easley DO Motrin (available over the counter): take according to label instructions. -- Nazario Easley DO Hydrocodone/APAP 5mg/325mg: take 1 to 2 orally every 6 hours as needed for pain. Dispense fifteen (15). No refills. -- Nazario Easley DO Clindamycin 300 mg: take 1 capsule orally every 6 hours for 7 days. No refills. -- Nazario Easley DO
--- NOTE | 2017-01-24 11:39 | ED DISCHARGE INSTRUCTIONS ---
Patient: SUZY HUTCHINS General Instructions [facility] VisitID: [id number] [address] [place] [address] 21y, F Registration Date/Time: 01/23/2017 Acute sialoadenitis Consider Mumps - lab report pending. INSTRUCTIONS Do not work for three days. Rest. Drink plenty of fluids. Do not smoke. Seek medical help to quit smoking. (You may try sucking on lemon drops). Warnings: Further evaluation is necessary. It is very important to follow up with a physician. CONTROLLED SUBSTANCE WARNINGS. GENERAL WARNINGS: Return or contact your physician immediately if your condition worsens or changes unexpectedly, if not improving as expected, or if other problems arise. Your Current Medications: STOP TAKING THE FOLLOWING MEDICATIONS: Amoxicillin-Pot Clavulanate Oral : 875 mg. CONTINUE TAKING THE FOLLOWING MEDICATIONS: Control Pills*. Prescription Medications: Hydrocodone/APAP 5mg/325mg: take 1 to 2 orally every 6 hours as needed for pain. Dispense fifteen (15). No refills. Clindamycin 300 mg: take 1 capsule orally every 6 hours for 7 days. No refills. OTC Medications: Acetaminophen (available over the counter): take according to label instructions. Motrin (available over the counter): take according to label instructions. Follow-up: Follow up with your doctor in two days. Follow-up with: Jae Tejeda MD, ENT, , [facility], [address] [place] [address], [place], [id number] Follow up in about two days if not better. ADDITIONAL INFORMATION Salivary Gland Infection Salivary glands make saliva in response to food in your mouth. Saliva is mostly water, but also has minerals and proteins that help break down food and keep the mouth and teeth healthy. There are three pairs of salivary glands: Parotid glands (in front of the ear) Submandibular glands (below the jaw) Sublingual glands (below the tongue) Each gland has a duct (channel) that allows saliva to flow from the gland into the mouth. The salivary gland can become infected as a result of the salivary duct being blocked. This blockage may be due to a stone, narrowing of the duct, or poor salivary flow due to dehydration. Chronic illness or certain medications can also increase the risk of infection. A blocked salivary gland is at risk of infection. This causes severe pain in the gland with redness in the skin over the gland. The gland is tender to the touch and there may be fever. Symptoms are worse during eating since food stimulates the flow of saliva. Even the smell or thought of food can cause symptoms to appear. Diagnosis of a salivary gland blockage with infection requires an X-ray, CT-scan, ultrasound or injection of dye into the salivary duct. If a stone is discovered, it may be removed by massage of the duct, or a procedure to remove the stone manually. Antibiotics are used to treat the infection. Sometimes it is necessary to drain the infection with a small surgical procedure. Home Care: Drink 6-8 glasses of fluid per day (water, juices, tea, soup, etc.) to keep well-hydrated. If you smoke, quit smoking. Maintain good dental hygiene: [place] your teeth, floss, and use mouthwash. If it is determined that no stone is present, but you have gland swelling during meals, there may be sludge blocking the duct, or the duct may be narrowed. Gently massaging the gland and sucking on lemon drops after a meal may help reduce the symptoms. Take antibiotics as directed until you have finished them all, even if you are feeling better after only a few days. Follow Up with your doctor or as advised by our staff. Get Prompt Medical Attention if any of the following occur: Increasing pain or swelling in the gland Fever over 100.5F (38.0C) that persists after two days of antibiotics Increasing redness over the gland How To Quit Smoking Smoking is one of the hardest habits to break. About half of all those who have ever smoked have been able to quit, and most of those (about 70%) who still smoke want to quit. Here are some of the best ways to stop smoking. Keep Trying: It takes most smokers about 8 tries before they are finally able to fully quit. So, the more often you try and fail, the better your chance of quitting the next time! So, don't give up! Go Cold Hart: Most ex-smokers quit cold turkey. Trying to cut back gradually doesn't seem to work as well, perhaps because it continues the smoking habit. Also, it is possible to fool yourself by inhaling more while smoking fewer cigarettes. This results in the same amount of nicotine in your body! Get Support: Support programs can make an important difference, especially for the heavy smoker. These groups offer lectures, methods to change your behavior and peer support. Call the free national Quitline for more information. 561-DVQB-DYA (220-380-6849). Low-cost or free programs are offered by many hospitals, local chapters of the [place] [employer] (797-569-6117) and the [place] [employer] (168-533-5269). Support at home is important too. Non-smokers can help by offering praise and encouragement. If the smoker fails to quit, encourage them to try again! Pwbj-Qik-Oqsgadj Medicines: For those who can't quit on their own, Nicotine Replacement Therapy (NRT) may make quitting much easier. Certain aids such as the nicotine patch, gum and lozenge are available without a prescription. However, it is best to use these under the guidance of your doctor. The skin patch provides a steady supply of nicotine to the body. Nicotine gum and lozenge gives temporary bursts of low levels of nicotine. Both methods take the edge off the craving for cigarettes. WARNING: If you feel symptoms of nicotine overdose, such as nausea, vomiting, dizziness, weakness, or fast heartbeat, stop using these and see your doctor. Prescription Medicines: After evaluating your smoking patterns and prior attempts at quitting, your doctor may offer a prescription medicine such as bupropion (Zyban, Wellbutrin), varenicline (Chantix, Champix), a niocotine inhaler or nasal spray. Each has its unique advantage and side effects which your doctor can review with you. Health Benefits Of Quitting: The benefits of quitting start right away and keep improving the longer you go without smokin minutes: blood pressure and pulse return to normal 8 hours: oxygen levels return to normal 2 days: ability to smell and taste begins to improve as damaged nerves start to regrow 2-3 weeks: circulation and lung function improves 1-9 months: decreased cough, congestion and shortness of breath; less tired 1 year: risk of heart attack decreases by half 5 years: risk of lung cancer decreases by half; risk of stroke becomes the same as a non-smoker For information about how to quit smoking, visit the following links: National Cancer [place] , Clearing the Air, Quit Smoking Today - an online booklet. http://www.smokefree.gov/pubs/clearing_the_air.pdf Smokefree.gov http://smokefree.gov/ QuitNet http://www.quitnet.com/ Hydrocodone Bitartrate, Acetaminophen Oral tablet What is this medicine? ACETAMINOPHEN; HYDROCODONE (a set a DELMAR jeremiah fen; horace droe KOE done) is a pain reliever. It is used to treat mild to moderate pain. How should I use this medicine? Take this medicine by mouth. Swallow it with a full glass of water. Follow the directions on the prescription label. If the medicine upsets your stomach, take the medicine with food or milk. Do not take more than you are told to take. Talk to your collections professional regarding the use of this medicine in children. This medicine is not approved for use in children. What side effects may I notice from receiving this medicine? Side effects that you should report to your doctor or health hospice spiritual care coordinator as soon as possible: allergic reactions like skin rash, itching or hives, swelling of the face, lips, or tongue breathing problems confusion feeling faint or lightheaded, falls stomach pain yellowing of the eyes or skin Side effects that usually do not require medical attention (report to your doctor or health hospice spiritual care coordinator if they continue or are bothersome): nausea, vomiting stomach upset What may interact with this medicine? alcohol antihistamines isoniazid medicines for depression, anxiety, or psychotic disturbances medicines for sleep muscle relaxants naltrexone narcotic medicines (opiates) for pain phenobarbital ritonavir tramadol What if I miss a dose? If you miss a dose, take it as soon as you can. If it is almost time for your next dose, take only that dose. Do not take double or extra doses. Where should I keep my medicine? Keep out of the reach of children. This medicine can be abused. Keep your medicine in a safe place to protect it from theft. Do not share this medicine with anyone. Selling or giving away this medicine is dangerous and against the law. Store at room temperature between 15 and 30 degrees C (59 and 86 degrees F). Protect from light. Keep container tightly closed. Throw away any unused medicine after the expiration date. Discard unused medicine and used packaging carefully. Pets and children can be harmed if they find used or lost packages. What should I tell my health care provider before I take this medicine? They need to know if you have any of these conditions: brain tumor Crohn's disease, inflammatory bowel disease, or ulcerative colitis drink more than 3 alcohol-containing drinks per day drug abuse or addiction head injury heart or circulation problems kidney disease or problems going to the bathroom liver disease lung disease, asthma, or breathing problems an unusual or allergic reaction to acetaminophen, hydrocodone, other opioid analgesics, other medicines, foods, dyes, or preservatives or trying to get breast-feeding What should I watch for while using this medicine? Tell your doctor or health hospice spiritual care coordinator if your pain does not go away, if it gets worse, or if you have new or a different type of pain. You may develop tolerance to the medicine. Tolerance means that you will need a higher dose of the medicine for pain relief. Tolerance is normal and is expected if you take the medicine for a long time. Do not suddenly stop taking your medicine because you may develop a severe reaction. Your body becomes used to the medicine. This does NOT mean you are addicted. Addiction is a behavior related to getting and using a drug for a non-medical reason. If you have pain, you have a medical reason to take pain medicine. Your doctor will tell you how much medicine to take. If your doctor wants you to stop the medicine, the dose will be slowly lowered over time to avoid any side effects. You may get drowsy or dizzy when you first start taking the medicine or change doses. Do not drive, use machinery, or do anything that may be dangerous until you know how the medicine affects you. Stand or sit up slowly. There are different types of narcotic medicines (opiates) for pain. If you take more than one type at the same time, you may have more side effects. Give your health care provider a list of all medicines you use. Your doctor will tell you how much medicine to take. Do not take more medicine than directed. Call emergency for help if you have problems breathing. The medicine will cause constipation. Try to have a bowel movement at least every 2 to 3 days. If you do not have a bowel movement for 3 days, call your doctor or health hospice spiritual care coordinator. Too much acetaminophen can be very dangerous. Do not take Tylenol (acetaminophen) or medicines that contain acetaminophen with this medicine. Many non-prescription medicines contain acetaminophen. Always read the labels carefully. Clindamycin Hydrochloride Oral capsule What is this medicine? CLINDAMYCIN (CHUCK Lopez) is a lincosamide antibiotic. It is used to treat certain kinds of bacterial infections. It will not work for colds, flu, or other viral infections. How should I use this medicine? Take this medicine by mouth with a full glass of water. Follow the directions on the prescription label. You can take this medicine with food or on an empty stomach. If the medicine upsets your stomach, take it with food. Take your medicine at regular intervals. Do not take your medicine more often than directed. Take all of your medicine as directed even if you think your are better. Do not skip doses or stop your medicine early. Talk to your collections professional regarding the use of this medicine in children. Special care may be needed. What side effects may I notice from receiving this medicine? Side effects that you should report to your doctor or health hospice spiritual care coordinator as soon as possible: allergic reactions like skin rash, itching or hives, swelling of the face, lips, or tongue dark urine pain on swallowing redness, blistering, peeling or loosening of the skin, including inside the mouth unusual bleeding or bruising unusually weak or tired yellowing of eyes or skin Side effects that usually do not require medical attention (report to your doctor or health hospice spiritual care coordinator if they continue or are bothersome): diarrhea itching in the rectal or genital area joint pain nausea, vomiting stomach pain What may interact with this medicine? chloramphenicol erythromycin kaolin products What if I miss a dose? If you miss a dose, take it as soon as you can. If it is almost time for your next dose, take only that dose. Do not take double or extra doses. Where should I keep my medicine? Keep out of the reach of children. Store at room temperature between 20 and 25 degrees C (68 and 77 degrees F). Throw away any unused medicine after the expiration date. What should I tell my health care provider before I take this medicine? They need to know if you have any of these conditions: kidney disease liver disease stomach problems like colitis an unusual or allergic reaction to clindamycin, lincomycin, or other medicines, foods, dyes like tartrazine or preservatives or trying to get breast-feeding What should I watch for while using this medicine? Tell your doctor or healthcare professional if your symptoms do not start to get better or if they get worse. Do not treat diarrhea with over the counter products. Contact your doctor if you have diarrhea that lasts more than 2 days or if it is severe and watery. Acetaminophen Oral tablet What is this medicine? ACETAMINOPHEN (a set a DELMAR jeremiah fen) is a pain reliever. It is used to treat mild pain and fever. How should I use this medicine? Take this medicine by mouth with a glass of water. Follow the directions on the package or prescription label. Take your medicine at regular intervals. Do not take your medicine more often than directed. Talk to your collections professional regarding the use of this medicine in children. While this drug may be prescribed for children as young as 6 years of age for selected conditions, precautions do apply. What side effects may I notice from receiving this medicine? Side effects that you should report to your doctor or health hospice spiritual care coordinator as soon as possible: allergic reactions like skin rash, itching or hives, swelling of the face, lips, or tongue breathing problems fever or sore throat redness, blistering, peeling or loosening of the skin, including inside the mouth trouble passing urine or change in the amount of urine unusual bleeding or bruising unusually weak or tired yellowing of the eyes or skin Side effects that usually do not require medical attention (report to your doctor or health hospice spiritual care coordinator if they continue or are bothersome): headache nausea, stomach upset What may interact with this medicine? alcohol imatinib isoniazid other medicines with acetaminophen What if I miss a dose? If you miss a dose, take it as soon as you can. If it is almost time for your next dose, take only that dose. Do not take double or extra doses. Where should I keep my medicine? Keep out of reach of children. Store at room temperature between 20 and 25 degrees C (68 and 77 degrees F). Protect from moisture and heat. Throw away any unused medicine after the expiration date. What should I tell my health care provider before I take this medicine? They need to know if you have any of these conditions: if you frequently drink alcohol containing drinks liver disease an unusual or allergic reaction to acetaminophen, other medicines, foods, dyes or preservatives or trying to get breast-feeding What should I watch for while using this medicine? Tell your doctor or health hospice spiritual care coordinator if the pain lasts more than 10 days (5 days for children), if it gets worse, or if there is a new or different kind of pain. Also, check with your doctor if a fever lasts for more than 3 days. Do not take other medicines that contain acetaminophen with this medicine. Always read labels carefully. If you have questions, ask your doctor or pharmacist. If you take too much acetaminophen get medical help right away. Too much acetaminophen can be very dangerous and cause liver damage. Even if you do not have symptoms, it is important to get help right away. Ibuprofen Oral tablet What is this medicine? IBUPROFEN (eye BYOO proe fen) is a non-steroidal anti-inflammatory drug (NSAID). It is used for dental pain, fever, headaches or migraines, osteoarthritis, rheumatoid arthritis, or painful monthly periods. It can also relieve minor aches and pains caused by a cold, flu, or sore throat. How should I use this medicine? Take this medicine by mouth with a glass of water. Follow the directions on the prescription label. Take this medicine with food if your stomach gets upset. Try to not lie down for at least 10 minutes after you take the medicine. Take your medicine at regular intervals. Do not take your medicine more often than directed. A special MedGuide will be given to you by the pharmacist with each prescription and refill. Be sure to read this information carefully each time. Talk to your collections professional regarding the use of this medicine in children. Special care may be needed. What side effects may I notice from receiving this medicine? Side effects that you should report to your doctor or health hospice spiritual care coordinator as soon as possible: allergic reactions like skin rash, itching or hives, swelling of the face, lips, or tongue black or bloody stools, blood in the urine or in vomit breathing problems changes in vision chest pain general ill feeling or flu-like symptoms nausea or vomiting redness, blistering, peeling or loosening of the skin, including inside the mouth slurred speech or weakness on one side of the body stomach pain unexplained weight gain or swelling unusually weak or tired yellowing of eyes or skin Side effects that usually do not require medical attention (report to your doctor or health hospice spiritual care coordinator if they continue or are bothersome): constipation or diarrhea dizziness gas or heartburn stomach upset What may interact with this medicine? Do not take this medicine with any of the following medications: cidofovir ketorolac methotrexate pemetrexed This medicine may also interact with the following medications: alcohol aspirin diuretics lithium other drugs for inflammation like prednisone warfarin What if I miss a dose? If you miss a dose, take it as soon as you can. If it is almost time for your next dose, take only that dose. Do not take double or extra doses. Where should I keep my medicine? Keep out of the reach of children. Store at room temperature between 15 and 30 degrees C (59 and 86 degrees F). Keep container tightly closed. Throw away any unused medicine after the expiration date. What should I tell my health care provider before I take this medicine? They need to know if you have any of these conditions: asthma cigarette smoker drink more than 3 alcohol containing drinks a day heart disease or circulation problems such as heart failure or leg edema (fluid retention) high blood pressure kidney disease liver disease stomach bleeding or ulcers an unusual or allergic reaction to ibuprofen, aspirin, other NSAIDS, other medicines, foods, dyes, or preservatives or trying to get breast-feeding What should I watch for while using this medicine? Tell your doctor or healthcare professional if your symptoms do not start to get better or if they get worse. This medicine does not prevent heart attack or stroke. In fact, this medicine may increase the chance of a heart attack or stroke. The chance may increase with longer use of this medicine and in people who have heart disease. If you take aspirin to prevent heart attack or stroke, talk with your doctor or health hospice spiritual care coordinator. Do not take other medicines that contain aspirin, ibuprofen, or naproxen with this medicine. Side effects such as stomach upset, nausea, or ulcers may be more likely to occur. Many medicines available without a prescription should not be taken with this medicine. This medicine can cause ulcers and bleeding in the stomach and intestines at any time during treatment. Ulcers and bleeding can happen without warning symptoms and can cause . To reduce your risk, do not smoke cigarettes or drink alcohol while you are taking this medicine. You may get drowsy or dizzy. Do not drive, use machinery, or do anything that needs mental alertness until you know how this medicine affects you. Do not stand or sit up quickly, especially if you are an older patient. This reduces the risk of dizzy or fainting spells. This medicine can cause you to bleed more easily. Try to avoid damage to your teeth and gums when you brush or floss your teeth. You have been given the following additional information: Salivary Gland Infection Smoking Cessation Hydrocodone Bitartrate, Acetaminophen Oral tablet Clindamycin Hydrochloride Oral capsule Acetaminophen Oral tablet Ibuprofen Oral tablet Do not work for three days. Rest. (Electronically signed by Nazario Easley DO 01/24/2017 11:38)
--- NOTE | 2017-01-24 11:39 | ED MED RECONCILIATION SUMMARY ---
Patient: SUZY HUTCHINS Medication Reconciliation Report [facility] VisitID: [id number] [address] [place] [address] 21y, F Registration Date/Time: 01/23/2017 Weight: 62.1 kg Height/Length: 65 in. BMI: 22.8 ALLERGIES: No Known Drug Allergy The patient's Home Medications are listed below: STOP TAKING THE FOLLOWING MEDICATIONS: Amoxicillin-Pot Clavulanate Oral 875 mg CONTINUE TAKING THE FOLLOWING MEDICATIONS: Control Pills The source(s) of the original Home Medication information: patient The following Medications were given to the patient in the Emergency Department: Percocet [PO] PO 1 tab, administered: 01/23/2017 8:46:00 AM Zofran ODT [PO] PO 4 mg, administered: 01/23/2017 8:46:00 AM Clindamycin [PO] PO 300 mg, administered: 01/23/2017 8:47:00 AM Ceftriaxone [IM] IM 1 gm, administered: 01/23/2017 9:38:00 AM The following Medications were prescribed to the patient: Acetaminophen (available over the counter): take according to label instructions. -- Nazario Easley DO Motrin (available over the counter): take according to label instructions. -- Nazario Easley DO Hydrocodone/APAP 5mg/325mg: take 1 to 2 orally every 6 hours as needed for pain. Dispense fifteen (15). No refills. -- Nazario Easley DO Clindamycin 300 mg: take 1 capsule orally every 6 hours for 7 days. No refills. -- Nazario Easley DO
== END 2017-01-23 10:00 | disposition home or self-care (01) ==
LOC: ED SRH 07:31
DX: K11.21 Acute sialoadenitis (principal)